=== PATIENT | female | born 1985 | race Caucasian/White ===

== ENCOUNTER → 2020-11-25 | Outpatient (CLI) | payer OTHER | LOC: LAB 23:31 | PROVIDERS: ATTEND Internal Medicine Pulmonary Disease | DX: Z20.828 Contact with and (suspected) exposure to other viral communicable diseases (principal) | CPT/HCPCS: U0003 ==

== ENCOUNTER → 2021-06-10 | Outpatient (CLI) | payer OTHER | LOC: SPEC 11:46 | PROVIDERS: ATTEND Nurse Practitioner Women's Health | DX: Z01.419 Encounter for gynecological examination (general) (routine) without abnormal findings (principal); R39.15 Urgency of urination | CPT/HCPCS: 87086; 88175 ==

== ENCOUNTER → 2021-06-16 | Outpatient (CLI) | payer OTHER | LOC: SPEC 15:11 | PROVIDERS: ATTEND Obstetrics & Gynecology | DX: R39.15 Urgency of urination (principal) | CPT/HCPCS: 87086 ==

== ENCOUNTER 2021-07-23 08:12 | Day surgery (SDC) | payer OTHER ==
[~2021-07-23] VITALS: Ht 160 cm; Wt 55.0 kg
[~2021-07-23 08:12] MED LIST: HYDROmorphone 2 MG/ML VIAL IVP PRN; IV RINGERS,LACTATED 1000ML 1,000 ML IV SCH; MORPHINE SULFATE 2 MG/ML INJ. IVP PRN; PROCHLORPERAZINE 10 MG/2 ML VIAL. IVP PRN; fentaNYL PF VIAL 100 MCG/2 ML VIAL IVP PRN
[2021-07-23 08:43] VITALS: BP 114/71
[2021-07-23] MEDS ORDERED: LIDOCAINE 2% PF 5 ML VIAL. ONE (08:46)
[2021-07-23] MEDS ORDERED: PROPOFOL 10 MG/ML (20ML) VIAL. IV ONE (08:46)
[2021-07-23] MEDS ORDERED: MIDAZOLAM HCL/PF 2 MG/2 ML VIAL. ONE (08:46)
[2021-07-23] MEDS ORDERED: NITR100C PO (08:56)
[2021-07-23] MEDS ORDERED: CETI10TA74 PO (08:56)
[2021-07-23] MEDS ORDERED: OXYB10TA26 PO (08:56)
[2021-07-23] MEDS ORDERED: BUPR300T3 PO (08:56)
[2021-07-23] MEDS ORDERED: METH54TA5 PO (08:56)
[2021-07-23] MEDS ORDERED: ONABOTULINUMTOXINA 100 UNIT VIAL. ID ONE (09:00)
[2021-07-23] MEDS ORDERED: 0.9 % SODIUM CHLORIDE 20 ML VIAL. IJ ONE (09:04)
[2021-07-23] MEDS ORDERED: ONDANSETRON PF 4 MG/2 ML VIAL. ONE (09:35)
[2021-07-23] MEDS ORDERED: DEXAMETHASONE SOD PHOS 4 MG/ML VIAL ONE (09:35)
[2021-07-23] MEDS ORDERED: KETOROLAC 30 MG/ML VIAL. ONE (09:54)
[2021-07-23] MEDS ORDERED: SEVOFLURANE 31 TO 60 MINUTES. IH ONE (09:57)
[2021-07-23] MEDS ORDERED: OXYC-325 PO (10:23)
--- NOTE | 2021-07-23 10:28 | PDOC ---
BRIEF OPERATIVE NOTE Date: Jul 23, 2021 Pre-Op Diagnosis overactive bladder Post-Op Diagnosis same Procedure Performed operative cystoscopy with injection of bladder botox Surgeon Dr. Amina Craig Cold Storage Superintendent OR Anesthesiologist Dr. Robles Anesthesia Type: General Blood Loss 0 IV Fluid see anesthesia Urine Output 0 Specimens Obtained none Findings normal bladder, normal bilateral ureteral openings, normal bladder bubble Complications none Operative Note [id number] AMINA CRAIG MD Jul 23, 2021 10:28
[2021-07-23] MEDS ORDERED: NALOXONE 0.4 MG/ML VIAL. IV PRN (10:30)
[2021-07-23] MEDS ORDERED: SIMETHICONE 80 MG TAB.CHEW PO PRN (10:30)
[2021-07-23] MEDS ORDERED: diphenhydrAMINE HCL 25 MG CAPSULE PO PRN (10:30)
[2021-07-23] MEDS ORDERED: oxyCODONE/APAP 5/325 1 TAB TABLET PO ONE (10:30)
[2021-07-23] MEDS ORDERED: diphenhydrAMINE 50 MG/ML VIAL IV PRN (10:30)
[2021-07-23] MEDS ORDERED: MAG HYDROX/ALUMINUM HYD/SIMETH 30 ML ORAL.SUSP PO PRN (10:30)
[2021-07-23] MEDS ORDERED: CALCIUM CARBONATE 500 MG TAB.CHEW PO PRN (10:30)
[2021-07-23] MEDS ORDERED: 0.9 % SODIUM CHLORIDE 10 ML DISP.SYRIN. IV PRN (10:30)
--- NOTE | 2021-07-23 10:45 | OP ---
DATE OF SURGERY: 07/23/2021 PREOPERATIVE DIAGNOSIS: Overactive bladder. POSTOPERATIVE DIAGNOSIS: Overactive bladder. PROCEDURE: Operative cystoscopy with injection of bladder Botox. SURGEON: Amina De Souza MD MANUFACTURER: OR personnel. ANESTHESIA: General. BLOOD LOSS: Zero. SPECIMENS: None. DRAINS AND TUBES: None. IV FLUIDS: Please see anesthesia. FINDINGS: She had a normal bladder with normal bladder bubble. Normal bilateral ureteral openings seen. COMPLICATIONS: None. DESCRIPTION OF PROCEDURE: This patient was taken to the operating room where general anesthesia was placed. The patient was placed in dorsal lithotomy position in [facility]. The patient's external was prepped and draped in the normal sterile fashion. The cystoscope had been primed and white balanced. Upon my arrival, a timeout was performed. Once everyone agreed on the patient, the site and the procedure, it was initiated. She was already on her 5-day antibiotic regimen. So no additional IV antibiotics were given. The cystoscope was placed in with the above findings. The 100 units of Botox was mixed in 10 mL of injectable saline and drawn up into a 10 mL syringe. The Laborie needle, the flexible was set to 3 and placed in. After the ureteral openings were seen starting on the patient's right side, going across in 8 or 9 injections and then going up a row, doing it again injecting 0.5 mL at each time counting all the way up until the Botox was entirely used. We got to 19 instead of 20, that we got 19 injections and then the 20th one was a 1 mL saline flush to get out anything that was left in the needle through the operating cystoscope channel. Once this was done, the procedure was ended. There was very minimal bleeding. The patient tolerated the procedure well. All counts were correct x 2 by OR personnel. The patient was awakened from anesthesia and brought to recovery room in stable condition. MITESH/FRANCESCO DR: Lolis TID: [id number]
[2021-07-23 10:52] VITALS: BP 113/78
== END 2021-07-23 11:43 | disposition home or self-care (01) ==
LOC: SURG 08:12
PROVIDERS: ATTEND Obstetrics & Gynecology
DX: N32.81 Overactive bladder (principal); F32.9 Major depressive disorder, single episode, unspecified; F17.210 Nicotine dependence, cigarettes, uncomplicated; Z98.890 Other specified postprocedural states
CPT/HCPCS: 52287; 81025; A4930; J0585; J1100; J1885; J2405; J2704; J3010; J2250

== ENCOUNTER 2022-03-26 06:11 | Day surgery (SDC) | payer OTHER ==
[~2022-03-26] VITALS: Ht 160 cm; Wt 54.0 kg
[~2022-03-26 06:11] MED LIST changes: +BUPR300T3 PO; +CETI10TA74 PO; +DEXT20TA2 PO; +HYDROmorphone 2 MG/ML INJ. IVP PRN; -HYDROmorphone 2 MG/ML VIAL IVP PRN; +LORA10TA68 PO; +METH54TA5 PO; +NITR100C PO; +OXYB10TA26 PO; +OXYC-325 PO
[2022-03-26 06:32] VITALS: BP 107/65
[2022-03-26] MEDS ORDERED: CLINDAMYCIN 900MG PREMIX 50 ML IV ONE (06:46)
[2022-03-26] MEDS ORDERED: SEVOFLURANE 31 TO 60 MINUTES. IH ONE (06:51)
[2022-03-26] MEDS ORDERED: LIDOCAINE 2% PF 5 ML VIAL. ONE (06:51)
[2022-03-26] MEDS ORDERED: ONDANSETRON PF 4 MG/2 ML VIAL. ONE (06:51)
[2022-03-26] MEDS ORDERED: PROPOFOL 10 MG/ML (20ML) VIAL. IV ONE (06:51)
[2022-03-26] MEDS ORDERED: DEXAMETHASONE SOD PHOS 4 MG/ML VIAL ONE (06:51)
[2022-03-26] MEDS ORDERED: fentaNYL PF VIAL 100 MCG/2 ML VIAL ONE (06:52)
[2022-03-26] MEDS ORDERED: 0.9 % SODIUM CHLORIDE 20 ML VIAL. IJ ONE (06:52)
[2022-03-26] MEDS ORDERED: MIDAZOLAM HCL/PF 2 MG/2 ML VIAL. ONE (06:52)
[2022-03-26] MEDS ORDERED: SUCCINYLCHOLINE 200 MG/10 ML VIAL. ONE (06:59)
[2022-03-26] MEDS ORDERED: levoFLOXacin 500mg PREMIX BAG. IV ONE (07:00)
[2022-03-26] MEDS ORDERED: CLINDAMYCIN PREMIX 900 MG/50 ML BAG IV ONE (07:00)
[2022-03-26] MEDS ORDERED: ONABOTULINUMTOXINA 100 UNIT VIAL. INJ ONE (07:30)
[2022-03-26] MEDS ORDERED: HYDROcodone/APAP 5/325MG 1 TAB TABLET PO PRN (08:15)
[2022-03-26] MEDS ORDERED: SIMETHICONE 80 MG TAB.CHEW PO PRN (08:15)
[2022-03-26] MEDS ORDERED: MAG HYDROX/ALUMINUM HYD/SIMETH 30 ML ORAL.SUSP PO PRN (08:15)
[2022-03-26] MEDS ORDERED: diphenhydrAMINE 50 MG/ML VIAL IV PRN (08:15)
[2022-03-26] MEDS ORDERED: diphenhydrAMINE HCL 25 MG CAPSULE PO PRN (08:15)
[2022-03-26] MEDS ORDERED: 0.9 % SODIUM CHLORIDE 10 ML DISP.SYRIN. IV PRN (08:15)
[2022-03-26] MEDS ORDERED: CALCIUM CARBONATE 500 MG TAB.CHEW PO PRN (08:15)
[2022-03-26] MEDS ORDERED: NALOXONE 0.4 MG/ML VIAL. IV PRN (08:15)
--- NOTE | 2022-03-26 08:23 | PDOC4 ---
BRIEF OPERATIVE NOTE Date: Mar 26, 2022 Pre-Op Diagnosis overactive bladder Post-Op Diagnosis same Procedure Performed operative cystoscopy with bladder botox Surgeon Dr. Craig Technology Recruiter same Anesthesiologist Dr. Epperson Anesthesia Type: General Blood Loss <5 IV Fluid see anesthesia notes Urine Output n/a bc cysto Specimens Obtained none Findings normal bladder and ureter openings Complications none Operative Note [id number] ALEIDA CRAIG MD Mar 26, 2022 08:23
[2022-03-26 08:29] LABS: BACTERIA,URINE 0 /HPF (0-FEW); RBC,URINE 0 /HPF (0-2); WBC,URINE 0 /HPF (0-4)
[2022-03-26 08:48] VITALS: BP 118/72
--- NOTE | 2022-03-26 08:56 | OP ---
DATE OF SURGERY: 03/26/2022 PREOPERATIVE DIAGNOSIS: Overactive bladder. POSTOPERATIVE DIAGNOSIS: Overactive bladder. PROCEDURE: Operative cystoscopy with injection of bladder Botox. SURGEON: Amina De Souza MD. INSPECTOR BALANCE WHEEL MOTION: OR personnel. TYPE OF ANESTHESIA: General. BLOOD LOSS: Less than 5 mL. ANESTHESIOLOGIST: Dr. Epperson. IV FLUIDS: Please see anesthesia records. URINE OUTPUT: Not applicable due to cystoscopy. FINDINGS: Normal bladder with bladder bubble. Normal ureteral openings. No evidence of anything unusual. COMPLICATIONS: None. DESCRIPTION OF PROCEDURE: This patient was taken to the operating room where anesthesia was placed. The patient was placed in dorsal lithotomy position in [place] stirrups. Vaginal area and ureteral openings were prepped and draped in the normal sterile fashion. The cystoscope was primed and ready upon my arrival. Upon my arrival, a timeout was performed. Once everyone agreed on the patient, the site, the procedure, the antibiotics, the procedure was initiated. The scope was placed in with the above findings. A 10 mL of injectable saline had been put in. A 100 unit vial of Botox. This was allowed to mix in and sit for a few seconds to reconstitute the Botox and the 10 mL of injectable saline. Then, it was opened and the port into a sterile container on the field. It was drawn up into a 10 mL syringe and a 1 mL flush of injectable saline was also drawn up and a second syringe ready. So once we were in the lap and the needle was placed through the operating channel, set on 3 for the needle and 21.5 mL injections of the bladder Botox mixture was injected into the bladder and then at the end, the 1 mL flush was done for the 21st injection, making sure all the product was out of the needle and in the bladder. Once this was done, the procedure was ended. There was no active bleeding. No trauma. A little bit of fluid was drained. Some was left and the procedure was ended. The patient was awakened from anesthesia and has been brought to recovery room in stable condition. MITESH/JOSSY ROWELL: Lolis TID: [id number]
== END 2022-03-26 09:09 | disposition home or self-care (01) ==
LOC: SURG 06:11
PROVIDERS: ATTEND Obstetrics & Gynecology
DX: N32.81 Overactive bladder (principal); F32.9 Major depressive disorder, single episode, unspecified; Z87.891 Personal history of nicotine dependence; Z79.899 Other long term (current) drug therapy; Z98.890 Other specified postprocedural states; Z88.0 Allergy status to penicillin; Z88.1 Allergy status to other antibiotic agents; Z72.89 Other problems related to lifestyle
CPT/HCPCS: 52287; 81001; 81025; A4930; J0330; J0585; J1100; J1956; J2250; J2405; J2704; J3010; J3490